=== PATIENT | female | born 1935 | race Caucasian/White ===

== ENCOUNTER 2018-01-30 14:26 | Outpatient (CLI) | payer MEDICARE, OTHER ==
[~2018-01-30 14:26] MED LIST: CARV-50 PO; CHOL100046 PO; CRAN200C PO; CYAN-19 PO; FISH1CAP15 PO; FLUT16SP10; FURO-150 PO; GLUC1CAP17 PO; HYDR20OI TP; LEVO100T78 PO; LOSA25TA96 PO; ROSU5TAB PO; UBID50TA3 PO; VITA150T
[2018-01-30 15:57] LABS: BASOPHILS % (AUTO) 0.5 % (0-1); EOSINOPHILS # (AUTO) 0.2 X10'3 (0-0.9); EOSINOPHILS % (AUTO) 2.3 % (0-6); LYMPHOCYTES # (AUTO) 2.4 X10'3 (1.1-4.8); LYMPHOCYTES % (AUTO) 36.3 % (21-51); MEAN CORPUSCULAR HGB CONC 33.1 % (33.0-36.5); MEAN CORPUSCULAR VOLUME 90.6 FL (78-98); MEAN PLATELET VOLUME 10.9 FL (7.4-10.4); MONOCYTES # (AUTO) 0.8 X10'3 (0-0.9); MONOCYTES % (AUTO) 11.2 % (2-12); NEUTROPHILS # (AUTO) 3.3 X10'3 (1.8-7.7); NEUTROPHILS % (AUTO) 49.7 % (42-75); PRE OP HEMATOCRIT 35.6 % (35.0-45.0); PRE OP HEMOGLOBIN 11.8 g/dL (12.0-16.0); PRE OP PLATELET COUNT 207 X10'3 (140-440); RED BLOOD COUNT 3.92 X10'6 (4.20-5.60); RED CELL DISTRIBUTION WIDTH 14.8 % (11.5-14.5)
[2018-01-30 16:08] LABS: PRE OP PROTIME 10.3 SECONDS (9.0-12.0)
[2018-01-30 16:12] LABS: ALBUMIN 3.5 G/DL (3.4-5.0); ALBUMIN/GLOBULIN RATIO 0.9 (1.1-1.5); ALKALINE PHOSPHATASE 59 IU/L (46-116); BLOOD UREA NITROGEN 17 MG/DL (7-18); BUN/CREATININE RATIO 15.5 (6.6-38.0); CALCIUM 9.2 MG/DL (8.5-10.1); CHLORIDE 103 MMOL/L (99-107); PRE OP ALT 16 U/L (30-65); PRE OP ANION GAP 5 (8-16); PRE OP AST 13 U/L (10-37); PRE OP BILIRUB, TOTAL 0.3 MG/DL (0.0-1.0); PRE OP GLUCOSE 85 MG/DL (70-104); PRE OP POTASSIUM 3.7 MMOL/L (3.4-5.1); PRE OP SODIUM 139 MMOL/L (135-145); TOTAL CARBON DIOXIDE 31.5 MMOL/L (24-32); TOTAL PROTEIN 7.4 G/DL (6.4-8.2); eGFR 47 ML/MIN
[2018-01-30] MEDS ORDERED: AMLO2.5T2 PO (16:22)
== END 2018-01-30 23:59 | disposition home or self-care (01) ==
LOC: PRE-OP 14:26 → EDSTATUS 14:50 → PRE-OP 23:59 → EDSTATUS 02-03 12:00
PROVIDERS: ATTEND Orthopaedic Surgery
DX: Z01.818 Encounter for other preprocedural examination (principal); M19.011 Primary osteoarthritis, right shoulder; M75.111 Incomplete rotator cuff tear or rupture of right shoulder, not specified as traumatic; M25.411 Effusion, right shoulder; M25.511 Pain in right shoulder; M75.01 Adhesive capsulitis of right shoulder; R79.89 Other specified abnormal findings of blood chemistry; I10 Essential (primary) hypertension
CPT/HCPCS: 36415; 71046; 80053; 84443; 85025; 85610; 85730; 87070

== ENCOUNTER 2018-04-20 05:54 | Day surgery (SDC) | payer MEDICARE, OTHER ==
[2018-04-19 15:30] LABS: BASOPHILS # (AUTO) 0.1 X10'3 (0-0.2); EOSINOPHILS # (AUTO) 0.2 X10'3 (0-0.9); EOSINOPHILS % (AUTO) 2.8 % (0-6); HEMATOCRIT 34.8 % (35.0-45.0); HEMOGLOBIN 11.7 g/dl (12.0-16.0); LYMPHOCYTES % (AUTO) 37.5 % (21-51); MEAN CORPUSCULAR HEMOGLOBIN 30.1 PG (27.0-31.0); MEAN CORPUSCULAR HGB CONC 33.5 % (33.0-36.5); MEAN CORPUSCULAR VOLUME 89.7 FL (78-98); MEAN PLATELET VOLUME 11.9 FL (7.4-10.4); MONOCYTES # (AUTO) 0.7 X10'3 (0-0.9); MONOCYTES % (AUTO) 12.3 % (2-12); NEUTROPHILS # (AUTO) 2.4 X10'3 (1.8-7.7); NEUTROPHILS % (AUTO) 46.4 % (42-75); PLATELET COUNT 180 X10'3 (140-440); RED BLOOD COUNT 3.89 X10'6 (4.20-5.60); RED CELL DISTRIBUTION WIDTH 14.3 % (11.5-14.5); WHITE BLOOD COUNT 5.4 X10'3 (4.5-11.0)
[2018-04-19 15:38] LABS: PARTIAL THROMBOPLASTIN TIME 24 SECONDS (22-32); PROTHROMBIN TIME 10.4 SECONDS (9.0-12.0)
[2018-04-19 15:39] LABS: ALBUMIN 3.6 G/DL (3.4-5.0); ANION GAP 7 (8-16); BLOOD UREA NITROGEN 24 MG/DL (7-18); BUN/CREATININE RATIO 19.2 (6.6-38.0); CALCIUM 9.2 MG/DL (8.5-10.1); CHLORIDE 104 MMOL/L (99-107); CREATININE 1.25 MG/DL (0.40-0.90); GLUCOSE 124 MG/DL (70-104); POTASSIUM 3.5 MMOL/L (3.5-5.1); SODIUM 142 MMOL/L (135-145); TOTAL CARBON DIOXIDE 31.2 MMOL/L (24-32); eGFR 41 ML/MIN
[2018-04-20] VITALS (13 sets, daily range): BP systolic 116–196; BP diastolic 35–117
[~2018-04-20] VITALS: Ht 152.4 cm; Wt 83.1 kg
[~2018-04-20 05:54] MED LIST changes: +AMLO5TAB21 PO; -CHOL100046 PO; -CRAN200C PO; -CYAN-19 PO; -FISH1CAP15 PO; -FLUT16SP10; +FLUT16SP11; -GLUC1CAP17 PO; -HYDR20OI TP; -LOSA25TA96 PO; +LOSA50TA3 PO; +NITR0.4T51 SL; -ROSU5TAB PO; -UBID50TA3 PO; -VITA150T
[2018-04-20] MEDS ORDERED: ACET-2119 PO (06:30)
[2018-04-20] MEDS ORDERED: diphenhydrAMINE 25mg capsule PO PRN (06:30)
[2018-04-20] MEDS ORDERED: clotrimazole 1% TOP (06:30)
[2018-04-20] MEDS ORDERED: sodium bicarbonate (8.4%) inj. 150 MEQ in sodium chloride 0.45% 1,000 ML IV ONE (06:30)
[2018-04-20] MEDS ORDERED: UBID30CA11 PO (06:30)
[2018-04-20] MEDS ORDERED: VIT1CAPS9 PO (06:30)
[2018-04-20] MEDS ORDERED: acetylcysteine 200 MG/ml 4ml vial PO PRN (06:30)
[2018-04-20] MEDS ORDERED: LORazepam 0.5 MG tablet PO PRN (06:30)
[2018-04-20] MEDS ORDERED: normal saline 1000ml 1,000 ML IV SCH (06:30)
[2018-04-20] MEDS ORDERED: iohexol 350 MG/ML 50ML vial IV ONE (07:42)
[2018-04-20] MEDS ORDERED: LIDOcaine 1% 30ml preserv. free vial ONE (07:42)
[2018-04-20] MEDS ORDERED: nitroGLYCERIN-Tridil 50MG/D5W 250 ML IV ONE (07:42)
[2018-04-20] MEDS ORDERED: fentaNYL/PF 50MCG/1 ML 2ML syringe ONE (07:42)
[2018-04-20] MEDS ORDERED: iohexol 350MG/ML 100ml bottle IV ONE (07:42)
[2018-04-20] MEDS ORDERED: midazolam 2 mg/2 ml injection ONE (07:42)
[2018-04-20] MEDS ORDERED: heparin 1,000unit/ml 10ml vial 10 ML ONE (07:42)
[2018-04-20] MEDS ORDERED: diltiazem 5mg/ml 5ml inj. IV ONE (08:54)
[2018-04-20] MEDS ORDERED: hydrALAZINE 20mg/ml inj. IV ONE (08:58)
[2018-04-20] MEDS ORDERED: hydrALAZINE 20mg/ml inj. IV PRN (09:55)
== END 2018-04-20 17:30 | disposition home or self-care (01) ==
LOC: SSTAY O 05:54
PROVIDERS: ATTEND Internal Medicine Cardiovascular Disease
DX: I25.10 Atherosclerotic heart disease of native coronary artery without angina pectoris (principal); E78.5 Hyperlipidemia, unspecified; G47.33 Obstructive sleep apnea (adult) (pediatric); K21.9 Gastro-esophageal reflux disease without esophagitis; M79.7 Fibromyalgia; M81.0 Age-related osteoporosis without current pathological fracture; E66.9 Obesity, unspecified; M19.90 Unspecified osteoarthritis, unspecified site; I12.9 Hypertensive chronic kidney disease with stage 1 through stage 4 chronic kidney disease, or unspecified chronic kidney disease; N18.9 Chronic kidney disease, unspecified; J44.9 Chronic obstructive pulmonary disease, unspecified; Z68.35 Body mass index [BMI] 35.0-35.9, adult; Z87.11 Personal history of peptic ulcer disease; Z79.891 Long term (current) use of opiate analgesic; Z88.0 Allergy status to penicillin; Z88.2 Allergy status to sulfonamides; Z88.1 Allergy status to other antibiotic agents; Z90.710 Acquired absence of both cervix and uterus; Z90.49 Acquired absence of other specified parts of digestive tract; Z96.653 Presence of artificial knee joint, bilateral; Z90.89 Acquired absence of other organs; Z98.41 Cataract extraction status, right eye; Z98.42 Cataract extraction status, left eye; Z85.828 Personal history of other malignant neoplasm of skin; Z88.8 Allergy status to other drugs, medicaments and biological substances; Z98.890 Other specified postprocedural states; Z79.899 Other long term (current) drug therapy
CPT/HCPCS: 36415; 80048; 85025; 85610; 85730; 93005; 93458; 99152; 99153; A4315; A6257; C1760; C1769; J0360; J1644; J2250; J3010; J3490; J7030; Q0163; Q9967; A4620

== ENCOUNTER 2018-05-12 06:57 | Inpatient (IN) | payer MEDICARE, OTHER ==
[2018-05-05 14:49] LABS: BASOPHILS % (AUTO) 0.7 % (0-1); EOSINOPHILS # (AUTO) 0.1 X10'3 (0-0.9); EOSINOPHILS % (AUTO) 2.4 % (0-6); LYMPHOCYTES # (AUTO) 2.1 X10'3 (1.1-4.8); LYMPHOCYTES % (AUTO) 33.5 % (21-51); MEAN CORPUSCULAR HEMOGLOBIN 29.7 PG (27.0-31.0); MEAN CORPUSCULAR HGB CONC 32.9 % (33.0-36.5); MEAN CORPUSCULAR VOLUME 90.3 FL (78-98); MEAN PLATELET VOLUME 10.8 FL (7.4-10.4); MONOCYTES # (AUTO) 0.7 X10'3 (0-0.9); MONOCYTES % (AUTO) 10.6 % (2-12); NEUTROPHILS # (AUTO) 3.3 X10'3 (1.8-7.7); NEUTROPHILS % (AUTO) 52.8 % (42-75); PRE OP HEMATOCRIT 35.4 % (35.0-45.0); PRE OP HEMOGLOBIN 11.6 g/dL (12.0-16.0); PRE OP PLATELET COUNT 212 X10'3 (140-440); RED BLOOD COUNT 3.92 X10'6 (4.20-5.60); RED CELL DISTRIBUTION WIDTH 14.8 % (11.5-14.5)
[2018-05-05 14:50] LABS: CLARITY,URINE CLEAR (Clear); COLOR,URINE YELLOW (Yellow); GLUCOSE, URINE NEGATIVE (Neg); KETONES,URINE NEGATIVE (Neg); LEUKOCYTE ESTERASE ,URINE NEGATIVE (Neg); NITRITES, URINE NEGATIVE (Neg); OCCULT BLOOD,URINE TRACE-INTACT (Neg); PH,URINE 6.5 (4.8-8.0); PROTEIN,URINE NEGATIVE (Neg); UROBILINOGEN,URINE 0.2 E.U/dL (0.2-1.0)
[2018-05-05 14:55] LABS: UA COLLECTION TYPE CLN CATCH MIDSTREAM
[2018-05-05 14:59] LABS: BACTERIA,URINE NONE SEEN /HPF (Neg); RBC,URINE 0-2 /HPF (0-2); SQUAMOUS EPITHELIAL CELL,UR FEW /LPF (FEW); WBC,URINE 0-4 /HPF (0-4)
[2018-05-05 15:14] LABS: LARGE PLATELETS MODERATE; PLATELET ESTIMATE NORMAL
[2018-05-05 15:15] LABS: ALBUMIN 3.6 G/DL (3.4-5.0); ALBUMIN/GLOBULIN RATIO 0.9 (1.1-1.5); ALKALINE PHOSPHATASE 55 IU/L (46-116); BLOOD UREA NITROGEN 18 MG/DL (7-18); BUN/CREATININE RATIO 17.3 (6.6-38.0); CALCIUM 9.1 MG/DL (8.5-10.1); CHLORIDE 101 MMOL/L (99-107); CREATININE 1.04 MG/DL (0.40-0.90); PRE OP ALT 13 U/L (30-65); PRE OP ANION GAP 5 (8-16); PRE OP AST 18 U/L (10-37); PRE OP BILIRUB, TOTAL 0.3 MG/DL (0.0-1.0); PRE OP GLUCOSE 154 MG/DL (70-104); PRE OP POTASSIUM 3.5 MMOL/L (3.4-5.1); PRE OP SODIUM 135 MMOL/L (135-145); TOTAL CARBON DIOXIDE 28.7 MMOL/L (24-32); TOTAL PROTEIN 7.5 G/DL (6.4-8.2); eGFR 50 ML/MIN
[~2018-05-12] VITALS: Ht 152.4 cm; Wt 81.2 kg
[2018-05-12] VITALS (18 sets, daily range): BP systolic 133–199; BP diastolic 62–121
[~2018-05-12 06:57] MED LIST changes: +ASPI-1264 PO; +CHOL100044 PO; +CRANBERRY PO; +CYAN250014 PO; +DENO60DI SQ; +DOCUMENT DATE & TIME OF BETA-BLOCKER PO ONE; +FISH1CAP15 PO; -FLUT16SP11; +FLUT16SP2 BOTHNARES; +GLUC-99 PO; +HYDR-4069 PO; +IBUP-1984 PO; +PROP1DRO7 OP; +PYRI50TA10 PO; +TURM500C7 PO; +UBID100C7 PO; +VANCOMYCIN INJ 1000 MG in NORMAL SALINE 250ml IV.SOLN IV ONE; +famotidine 20mg tablet PO ONE; +ringers solution, lacted 1,000 ML IV SCH
[2018-05-12] MEDS ORDERED: ROPIVAcaine 0.5% (5mg/ml) 30ml vial ONE ×2 (07:08→09:37)
[2018-05-12] MEDS ORDERED: LIDOcaine 1% (10mg/ml) 2ml vial ONE (07:26)
[2018-05-12] MEDS ORDERED: cefazolin/dext.iso 2gm/50ml 50 ML IV ONE (07:40)
[2018-05-12] MEDS ORDERED: ketorolac trometh. 30mg/ml inj. ONE (09:36)
[2018-05-12] MEDS ORDERED: vancomycin 1,000mg inj ONE (09:37)
[2018-05-12] MEDS ORDERED: fentaNYL/PF 50MCG/1 ML 2ML syringe ONE (09:42)
[2018-05-12] MEDS ORDERED: midazolam 2 mg/2 ml injection ONE (09:43)
[2018-05-12] MEDS ORDERED: propofol inj 20 ML IV ONE (09:44)
[2018-05-12] MEDS ORDERED: LIDOcaine 2% (20mg/ml) 5ml vial ONE (09:44)
[2018-05-12] MEDS ORDERED: dexamethasone sod phosphate 10mg/ml inj ONE (10:15)
[2018-05-12] MEDS ORDERED: sevoflurane 250ml liquid IH ONE (10:15)
[2018-05-12] MEDS ORDERED: ondansetron/PF 4mg/2ml inj ONE ×2 (10:15→11:01)
[2018-05-12] MEDS ORDERED: tranexamic acid inj. 800 MG in normal saline 100ml IV soln 92 ML IV ONE ×2 (10:20→10:25)
[2018-05-12] MEDS ORDERED: nitroGLYCERIN 0.4mg SUBLingual tab SL PRN (11:25)
[2018-05-12] MEDS ORDERED: ringers solution, lacted 1,000 ML IV SCH (11:32)
[2018-05-12] MEDS ORDERED: hydrALAZINE 20mg/ml inj. IV PRN (11:35)
[2018-05-12] MEDS ORDERED: enalaprilat dihydrate 2.5mg/2ml vial IV PRN (11:35)
[2018-05-12] MEDS ORDERED: ondansetron/PF 4mg/2ml inj IV PRN ×2 (11:35→12:30)
[2018-05-12] MEDS ORDERED: fentaNYL/PF 50MCG/1 ML 2ML syringe IV PRN ×2 (11:35)
[2018-05-12] MEDS ORDERED: morphine 4 MG/ML inj SYRINge IV PRN ×2 (11:35)
[2018-05-12] MEDS ORDERED: HYDROmorphone 1 mg/ml syringe IV PRN ×2 (12:30)
[2018-05-12] MEDS ORDERED: bisacodyl 10mg suppository rectal RC PRN (12:30)
[2018-05-12] MEDS ORDERED: acetaminophen 325mg tablet PO PRN (12:30)
[2018-05-12] MEDS ORDERED: magnesium hydroxide 30ml (MOM) UD suspension PO PRN (12:30)
[2018-05-12] MEDS ORDERED: diphenhydrAMINE 25mg capsule PO PRN ×2 (12:30)
[2018-05-12] MEDS ORDERED: oxyCODONE IR 5mg (immed. release) tablet PO PRN ×2 (12:30)
[2018-05-12] MEDS ORDERED: CARBOXYMETHYLCELLULOSE SODIUM 15 ML DROPS EACHEYE PRN (12:35)
[2018-05-12] MEDS: acetaminophen 325mg tablet PO SCH ×2 (14:36→20:31)
[2018-05-12] MEDS: gabapentin 300mg capsule PO SCH ×2 (14:36→20:31)
[2018-05-12] MEDS: ketorolac tromethamine 15mg/ml inj. IV SCH ×2 (14:36→20:26)
[2018-05-12] MEDS: potassium cl 20mEq in 1/2 NS 1,000 ML IV SCH (14:37)
[2018-05-12] MEDS ORDERED: ibuprofen 200mg tablet PO SCH (16:00)
[2018-05-12] MEDS: ceFAZolin 1GM/D5W- ADD-VANTAGE 50 ML IV SCH (16:59)
[2018-05-12] MEDS ORDERED: non-formulary drug (Ubidecarenone (Co Q10) 200 MG) PO SCH (17:30)
[2018-05-12] MEDS ORDERED: vancomycin/NS 1 GM ADD-VANTAGE 250 ML IV SCH (20:00)
[2018-05-12] MEDS: carVEDilol 12.5mg tablet PO SCH (20:30)
[2018-05-12] MEDS: hydrALAZINE 25 MG tablet PO SCH (20:30)
[2018-05-12] MEDS ORDERED: sennosides 8.6mg tablet PO SCH (21:00)
[2018-05-13] MEDS: ceFAZolin 1GM/D5W- ADD-VANTAGE 50 ML IV SCH (00:13)
[2018-05-13] MEDS: acetaminophen 325mg tablet PO SCH ×2 (01:58→07:52)
[2018-05-13 02:00] VITALS: BP 131/74
[2018-05-13] MEDS: ketorolac tromethamine 15mg/ml inj. IV SCH ×2 (02:00→07:51)
[2018-05-13] MEDS: potassium cl 20mEq in 1/2 NS 1,000 ML IV SCH ×2 (02:09→02:10)
[2018-05-13] MEDS: carVEDilol 12.5mg tablet PO SCH (05:41)
[2018-05-13] MEDS: hydrALAZINE 25 MG tablet PO SCH (05:41)
[2018-05-13] MEDS ORDERED: furosemide 20MG tablet PO ONE (05:45)
[2018-05-13] MEDS ORDERED: amLODIPine 5mg tablet PO ONE (05:45)
[2018-05-13] MEDS ORDERED: losartan 50mg tablet PO SCH ×2 (05:45→08:00)
[2018-05-13] MEDS ORDERED: losartan 50mg tablet PO ONE (05:45)
[2018-05-13 06:00] VITALS: BP 182/96
[2018-05-13 07:00] VITALS: BP 171/75
[2018-05-13 07:09] LABS: BASOPHILS % (AUTO) 0.1 % (0-1); EOSINOPHILS # (AUTO) 0.2 X10'3 (0-0.9); EOSINOPHILS % (AUTO) 1.4 % (0-6); HEMOGLOBIN 11.8 g/dl (12.0-16.0); LYMPHOCYTES # (AUTO) 1.2 X10'3 (1.1-4.8); LYMPHOCYTES % (AUTO) 9.8 % (21-51); MEAN CORPUSCULAR HEMOGLOBIN 30.4 PG (27.0-31.0); MEAN CORPUSCULAR HGB CONC 33.7 % (33.0-36.5); MEAN CORPUSCULAR VOLUME 90.3 FL (78-98); MEAN PLATELET VOLUME 12.5 FL (7.4-10.4); MONOCYTES % (AUTO) 7.7 % (2-12); NEUTROPHILS # (AUTO) 10.2 X10'3 (1.8-7.7); PLATELET COUNT 169 X10'3 (140-440); RED BLOOD COUNT 3.88 X10'6 (4.20-5.60); RED CELL DISTRIBUTION WIDTH 15.2 % (11.5-14.5); WHITE BLOOD COUNT 12.6 X10'3 (4.5-11.0)
[2018-05-13 07:22] LABS: LARGE PLATELETS FEW; PLATELET ESTIMATE NORMAL
[2018-05-13] MEDS: gabapentin 300mg capsule PO SCH (07:51)
[2018-05-13] MEDS ORDERED: pyridoxine 50mg tablet PO SCH (08:00)
[2018-05-13] MEDS ORDERED: cyanocobalamin 500mcg tablet PO SCH (08:00)
[2018-05-13] MEDS ORDERED: [UNRECOGNIZED DRUG - OTHER] PO SCH (08:00)
[2018-05-13] MEDS ORDERED: amLODIPine 5mg tablet PO SCH (08:00)
[2018-05-13] MEDS ORDERED: TURMERIC PO SCH (08:00)
[2018-05-13] MEDS ORDERED: TURMERIC ROOT EXTRACT PO SCH (08:00)
[2018-05-13] MEDS ORDERED: vitamin D (cholecalciferol) 1,000 unit tablet PO SCH (08:00)
[2018-05-13] MEDS ORDERED: levoTHYROXINE 112mcg tablet PO SCH (08:00)
[2018-05-13] MEDS ORDERED: fluticasone nasal spray 16GM bottle NS SCH (08:00)
[2018-05-13] MEDS ORDERED: furosemide 20MG tablet PO SCH (08:00)
[2018-05-13 08:12] LABS: ANION GAP 11 (8-16); CHLORIDE 99 MMOL/L (99-107); POTASSIUM 3.5 MMOL/L (3.5-5.1); SODIUM 134 MMOL/L (135-145); TOTAL CARBON DIOXIDE 23.7 MMOL/L (24-32)
[2018-05-13] MEDS ORDERED: aspirin 325mg tablet PO SCH (08:30)
[2018-05-13 10:00] VITALS: BP 122/56
[2018-05-13] MEDS ORDERED: ASPI-1 PO (11:21)
[2018-05-13] MEDS ORDERED: celeCOXIB 100mg capsule PO SCH (20:00)
[2018-05-14] MEDS ORDERED: acetaminophen 325mg tablet PO PRN (12:30)
== END 2018-05-13 12:22 | disposition home or self-care (01) | DRG 483 ==
LOC: PAS IN 06:57 → EDSTATUS 10:30 → ORTHO 4S 13:35
PROVIDERS: ADMIT Orthopaedic Surgery; ATTEND Orthopaedic Surgery
PROC: 0LS30ZZ Reposition Right Upper Arm Tendon, Open Approach (ICD-10-PCS; 2018-05-12)
PROC: 5A09357 Assistance with Respiratory Ventilation, Less than 24 Consecutive Hours, Continuous Positive Airway Pressure (ICD-10-PCS; 2018-05-12)
PROC: 3E0T3BZ Introduction of Anesthetic Agent into Peripheral Nerves and Plexi, Percutaneous Approach (ICD-10-PCS; 2018-05-12)
PROC: 0RRJ0JZ Replacement of Right Shoulder Joint with Synthetic Substitute, Open Approach (ICD-10-PCS; principal; 2018-05-12 10:15)
DX: M19.011 Primary osteoarthritis, right shoulder (principal); E03.9 Hypothyroidism, unspecified; E78.5 Hyperlipidemia, unspecified; G89.29 Other chronic pain; I10 Essential (primary) hypertension; M75.111 Incomplete rotator cuff tear or rupture of right shoulder, not specified as traumatic; M75.01 Adhesive capsulitis of right shoulder; I25.10 Atherosclerotic heart disease of native coronary artery without angina pectoris; K21.9 Gastro-esophageal reflux disease without esophagitis; M65.9 Synovitis and tenosynovitis, unspecified; M75.21 Bicipital tendinitis, right shoulder; G47.30 Sleep apnea, unspecified; D64.9 Anemia, unspecified; Z88.0 Allergy status to penicillin; Z88.2 Allergy status to sulfonamides; Z88.1 Allergy status to other antibiotic agents; Z88.8 Allergy status to other drugs, medicaments and biological substances; Z79.899 Other long term (current) drug therapy
CPT/HCPCS: 36415; 80051; 80053; 81001; 84443; 85025; 87070; 97110; 97161; 97530; A4565; A7000; C1713; C1776; J0360; J0690; J1100; J1885; J2001; J2250; J2405; J2704; J2795; J3010; J3370; J3490; J7030; J7040; J7120